=== PATIENT | male | born 1950 | race Caucasian/White ===

== ENCOUNTER → 2019-03-22 10:43 | Outpatient (CLI) | payer MEDICARE, SELFPAY ==
[2019-03-22 10:10] VITALS: BMI 29.5
[2019-03-22 12:28] LABS: ALB/GLOB Ratio 1.1 RATIO (0.9-2.4); AST(SGOT) 27 U/L (15-37); Alanine Aminotransfer ALT/SGPT 37 U/L (16-61); Albumin, Serum 4.2 g/dL (3.2-5.0); Alkaline Phosphatase 94 U/L (45-117); Anion Gap 7 (5-15); BUN 15 mg/dL (7-18); BUN/Creat Ratio 13.5 RATIO (10-20); Calcium,Total 9.3 mg/dL (8.5-10.1); Chloride 103 mmol/L (98-107); Cholesterol 259 mg/dL (200); Creatinine, Serum 1.11 mg/dL (0.70-1.30); EST Glomerular Filtration Rate 70 mL/min (>60); Est Glom Filt Rate - Afr Amer 84 mL/min (>60); Globulin 3.8 g/dL (2.2-4.2); Glucose 100 mg/dL (74-106); High Density Lipoprotein 43 mg/dL; Potassium 4.4 mmol/L (3.5-5.1); Sodium Level 137 mmol/L (136-145); Triglycerides 364 mg/dL; Very Low Density Lipoprotein 73 mg/dL (5-40)
== END ==
PROVIDERS: Family Provider Family Medicine; PCP Family Medicine; Visit Provider Family Medicine
DX: E78.5 Hyperlipidemia, unspecified (principal); N52.9 Male erectile dysfunction, unspecified; K76.0 Fatty (change of) liver, not elsewhere classified
CPT/HCPCS: 36415; 80053; 80061; 84403

== ENCOUNTER → 2019-04-21 10:17 | Outpatient (CLI) | payer MEDICARE, SELFPAY ==
[2019-03-22 10:10] VITALS: BMI 29.5
== END ==
PROVIDERS: Family Provider Family Medicine; PCP Family Medicine; Visit Provider Family Medicine
DX: N53.9 Unspecified male sexual dysfunction (principal)
CPT/HCPCS: 36415; 84403

== ENCOUNTER → 2019-09-06 09:51 | Outpatient (CLI) | payer MEDICARE, SELFPAY ==
[2019-09-06 09:41] VITALS: BMI 30.6
--- NOTE | 2019-09-06 09:51 | RAD_ITS ---
STUDY: X-RAY - LEFT KNEE REASON FOR EXAM: Male, 68 years old. LEFT KNEE PAIN, NO TRAUMA TECHNIQUE: 4 view(s) of the knee. COMPARISON: None. FINDINGS: Normal visualized distal femur. Normal visualized proximal tibia and fibula. Normal proximal tibiofibular articulation. Normal medial femorotibial compartment. Normal lateral femorotibial compartment. Normal patellofemoral articulation. The soft tissue structures are unremarkable. RAD/Knee 4 or More Views IMPRESSION: Normal x-ray examination of the knee. Electronically Signed: Charan Olivares, at 11:21 EDT , Service support ,
== END ==
PROVIDERS: PCP Family Medicine; Referring Provider Orthopaedic Surgery; Visit Provider Orthopaedic Surgery
DX: M25.562 Pain in left knee (principal)
CPT/HCPCS: 73564

== ENCOUNTER → 2019-09-08 16:06 | Outpatient (CLI) | payer MEDICARE, SELFPAY ==
[2019-09-06 10:06] VITALS: BMI 29.5
--- NOTE | 2019-09-08 16:07 | MRI_ITS ---
STUDY: MRI LEFT KNEE REASON FOR EXAM: Male, 69 years old. MEDIAL LEFT knee pain X 3 WEEKS NO KNOWN INJURY TECHNIQUE: Standardized fat and water weighted pulse sequences were obtained in all 3 orthogonal planes. COMPARISON: None. FINDINGS: Oblique tears are present in the body of the medial meniscus as well as the root insertion of the posterior horn of medial meniscus. Degenerative signal is also present in these regions. Normal anterior horn. There is diffuse, less than 50% thickness articular cartilage loss of the medial femorotibial compartment. Normal medial femoral condyle and tibial plateau. Normal medial collateral ligamentous complex (MCL). Normal distal semimembranosus, gracilis and semitendinosus tendons. Normal lateral meniscus. Normal hyaline cartilage of the lateral femorotibial compartment. Normal lateral femoral condyle and tibial plateau. Normal proximal tibiofibular articulation. Normal lateral collateral (fibular) ligament. Normal popliteus tendon. Normal biceps femoris tendon. Normal anterior cruciate ligament (ACL). Normal posterior cruciate ligament (PCL). Normal congruent patellofemoral articulation. Normal hyaline cartilage of the patellofemoral compartment. Normal medial and lateral patellar retinaculum. Normal quadriceps tendon. Normal patellar tendon. Normal Hoffa''s fat pad. There is a small volume joint effusion. A tiny Salinas''s cyst is present. Small synovial plica seen in the medial patellofemoral gutter. Mild subcutaneous edema is present anterior aspect of knee joint. The soft tissues are unremarkable. The otherwise visualized osseous structures are unremarkable. MRI/Lower Ext Joint Only (Routine) IMPRESSION: 1. Small oblique tear is in the body and posterior horn of medial meniscus 2. Small joint effusion 3. Small synovial plica seen in the medial patellofemoral gutter. Electronically Signed: Papa Guerrero MD at 23:23 EDT , Service support ,
--- NOTE | 2019-09-08 16:25 | RAD_ITS ---
STUDY: X-RAY - ORBITS REASON FOR EXAM: Male, 69 years old. Pre-MRI, looking for foreign body TECHNIQUE: 2 view(s) of the orbits were obtained. COMPARISON: None. FINDINGS: Normal bilateral orbits without a metallic orbital foreign body. Normal visualized facial bones. Normal paranasal sinuses. The soft tissue structures are unremarkable. RAD/Orbits for Foreign Body IMPRESSION: No demonstrated metallic orbital foreign body. The patient is cleared for an MRI examination. Electronically Signed: Ray Albarado MD at 16:37 EDT , Service support ,
== END ==
PROVIDERS: PCP Family Medicine; Referring Provider Orthopaedic Surgery; Visit Provider Orthopaedic Surgery
DX: S83.242A Other tear of medial meniscus, current injury, left knee, initial encounter (principal)
CPT/HCPCS: 70030; 73721

== ENCOUNTER 2020-12-31 06:38 | Day surgery (SDC) | payer MEDICARE, SELFPAY ==
[2020-12-09 09:59] VITALS: BMI 30.3
[2020-12-31] VITALS (8 sets, daily range): BP systolic 122–160; BP diastolic 65–88; PULSE 62–73; RESP 15–16; TEMP 36.2–36.6; O2SAT 98–100; BMI 30.1
--- NOTE | 2020-12-31 06:51 | EKG12_ITS ---
Test Reason : PRE OP Blood Pressure : / mmHG Vent. Rate : 075 BPM Atrial Rate : 075 BPM P-R Int : 142 ms QRS Dur : 092 ms QT Int : 370 ms P-R-T Axes : 031 -18 -43 degrees QTc Int : 413 ms Normal sinus rhythm Nonspecific ST and T wave abnormality Abnormal ECG No previous ECGs available Confirmed by STACY SOLIS, FARHAT ([id number]), social media editor DOMINIC MYERS ([id number]) on 01/03/2021 9:59:30 AM Referred By: Anupam Roy Confirmed By:CHELSEA KUMAR MD
[2020-12-31] MEDS: Lactated Ringers 1,000 ML 100 ML IV (07:30)
--- NOTE | 2020-12-31 07:40 | HP.PCM_ITS ---
History and Physical Date of Admission: 12/31/20 Date of Service: 12/09/20 MR#:[id number]:[id number]: MARIA ANTONIA ANDERSON [facility] #:[id number]:[id number] Provider:Dr. Anupam Roy DOAge/Sex: 70/M [facility] [place] Intake Vital Signs 12/09/20 09:59 Height 5 ft 5.5 in Weight: 185 lb BMI 30.3 Intake Visit Reasons: LEFT KNEE Is patient in pain?: Yes Allergies influenza virus vaccine tvs [id number](65 years up) [From Fluad [id number] (65 yr up)(PF)] Allergy (Severe, Verified 12/09/20 10:01) Unknown Tetanus Vaccines and Toxoid Allergy (Severe, Verified 12/09/20 10:01) Pain in joints vaccine adjuvant emulsion MF59C.1 [From Fluad 5318-3677 (65 yr up)(PF)] Allergy (Severe, Verified 12/09/20 10:01) Unknown atorvastatin Allergy (Intermediate, Verified 12/09/20 10:01) Pain in joints guaifenesin [From Mucinex] Allergy (Verified 12/09/20 10:01) racing heart, pass out Medications NK 12/09/20 [History Confirmed 12/09/20] [facility] Medical History (Updated 12/09/20 @ 10:36 by Montserrat George) Carpal tunnel syndrome H/O tinnitus Hearing problem Pneumonia Seasonal allergies Tumors Surgical History History of colonoscopy 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 Anupam Roy DO) Smoking Status: Former smoker how long ago did patient quit smokin alcohol intake: never substance use type: does not use what type of physical activity do you participate in: none HPI LEFT KNEE Details: Parts of this documentation were recorded by a scribe, this documentation accurately reflects the service provided and the decisions made by me, Dr. Anupam Roy DO 12/09/20 0749. MARIA ANTONIA ANDERSON is a 70 year old M here today for left knee pain. Patient notes that he has had increased left knee pain over the last month. He has painful popping and clicking. Patient denies any knee instability. He complains of medial knee pain. Patient has increased pain with ambulation and standing after prolonged sitting. Patient notes that he has minimal swelling. Patient had xrays and an MRI in the spring. Patient takes ibuprofen for pain. He has a knee brace which is somewhat helpful. ROS Musc Reports arthralgias, Reports joint swelling, Reports muscle weakness, Denies numbness and Denies tingling Skin/Breast Reports system reviewed and no additional complaints, except as documented Neuro Yes system reviewed and no additional complaints, except as documented, No numbness and No tingling Ortho Exam General General: Yes no acute distress Neurologic: Yes alert Psychologic: Yes reasonable and appropriate Right Knee Patella Translation: 1 Left Knee Skin/Wound: Yes CDI, No ecchymosis, No erythema and No swelling Homans Sign: No Knee ROM: No ROM-Passive Extension -10 to 0 (8) and No ROM-Passive Flexion 0-140 Examination: Yes med jt line tenderness and No TTP Pes Anserine Stability: NML: Valgus 30 (2mm medial gapping) Apprehension with Lateral Translation: No Patella Translation: 1 KNEE: valgus deformity, ttp medial femoral condyle. Supplemental Info 09/08/2019 MRI left knee: oblique tear posterior body and horn medial meniscus small joint effusion small synovial plica medial patellofemoral gutter Coding Level of Care Code Off vis,est,level 3 Diagnoses Acute medial meniscus tear of left knee S83.242A Osteoarthritis of left knee M17.12 Assessment and Plan Assessment and Plan (1) Acute medial meniscus tear of left knee: Status: Acute (2) Osteoarthritis of left knee: Status: Acute Plan - Dr. Anupam Roy, DO: Spoke with the patient about the anatomy of the knee and etiology of his pain. Spoke with him about a knee arthroscopy to help with his meniscus tear. He has a risk of continued pain due to osteoarthritis. If he continues to have pain following surgery, he would be a candidate for a steroid injection. Patient wanted to proceed with surgery. Reviewed the pre-operative plans with the patient. Risks and benefits of the procedure were fully explained, including but not limited to infection, neurovascular injury, continued pain, arthritis, stiffness, need for further surgery, re-injury, DVT, PE, general risks of anesthesia, and loss of limb or life. The patient understands all the risks and does wish to proceed with written consent. He should not take any aleve or ibu 7 days prior to surgery. Follow up for 2 week post op appointment or sooner if pain, swelling, numbness or associated symptoms, or concerns develop. All questions answered. Patient in agreement of plan. Plan Details Other Orders: Orders: Knee 4 or More Views Today M25.562 12/09/20 1152<Electronically signed by Anupam Roy DO>Date Anupam Roy DO Cosigner Signature:Date (if applicable) CC: Dr. Rohit Dukes, DO ~I have re-examined the patient. There are no clinical changes since date of exam
[2020-12-31] MEDS: Cefazolin 2 GM in 0.9% Normal Saline 100 ML IV (11:00)
[2020-12-31] MEDS: Epinephrine (1 mg/ml) 1 MG/ML VIAL (11:18)
[2020-12-31] MEDS: Lidocaine 1% /Epi 1:100 (20ml) 20 ML Vial (11:18)
[2020-12-31] MEDS: MethylPREDNISolone Acetate 40 MG/ML Vial IM (11:43)
[2020-12-31] MEDS: Bupivacaine Mpf 0.5% 30 ML VIAL (11:43)
--- NOTE | 2020-12-31 11:56 | OP.PCM_ITS ---
Report of Operation Description of Surgical Findings:: Preop diagnosis: Left knee medial meniscus tear medial plica Postoperative diagnosis: Left knee complex tear posterior horn body and anterior horn medial meniscus small radial tear body lateral meniscus medial plica band grade 3 cartilage wear medial femoral condyle Procedure: Left knee arthroscopic partial medial partial lateral meniscectomy excision of plica Anesthesia: General Estimated blood loss: 5 mL Tourniquet time: 27 minutes 300 mmHg Complications: none Indication for procedure: 70-year-old male patient who has had ongoing mechanical knee symptoms and has failed conservative treatment with MRI evidence of medial meniscus tear the patient did wish to proceed with an elective arthroscopic surgery to attempt to alleviate the symptoms. Risk benefits and alternatives of the procedure were reviewed including risk of bleeding infection nerve artery tissue damage need for further surgery continued pain and expected postoperative course. Procedure: The patient was met in the preoperative holding area. The operative extremity was identified by both patient and physician and family and marked. Patient was brought back to the operating room on a wheeled cart and transferred to the operating table in the supine position. Anesthesia was started. A well-padded tourniquet was placed on the operative extremity. A lower extremity leg gutierrez was secured to the operative extremity. The contralateral extremity was well-padded and the end of the bed was flexed to 90 degrees. The patient was prepped and draped in the usual sterile fashion. A timeout was called to ensure the proper patient, procedure, and extremity were being contemplated. 0.5% Marcaine with epinephrine was injected into the planned incisional areas under the skin only. An Esmarch was used to exsanguinate the extremity and the tourniquet was inflated. An 11 blade scalpel was used to make a stab incision in the anterior lateral portal. The arthroscope was inserted into the intercondylar notch and inflow and outflow tubes were attached. Arthroscopic visualization began. The medial compartment was entered. An 18-gauge spinal needle was used to establish the placement for anterior medial portal. An 11 blade scalpel was used to make a stab incision. Blunt probe was inserted followed by a meniscal probe. There was noted to be complex tearing of the medial meniscus with use of arthroscopic biting instruments shaver and ArthroCare wand partial medial meniscectomy was performed there was noted to be grade 3 chondral wear of the medial femoral condyle the ACL was found to be intact. The lateral compartment was entered there is noted to be a small radial tear in the junction of the anterior horn and body of the lateral meniscus shaver was used to perform a partial lateral meniscectomy there is softening of the cartilage of the lateral compartment and some fibrillation but no major defects The arthroscope was switched to the medial portal to complete the procedure. The medial and lateral gutters were inspected and were free of loose bodies. The patellofemoral joint was inspected had some softening and fibrillation of the patellofemoral joint there is no to be a medial plica which was excised. There was good patellar tracking. The knee was thoroughly i rrigated and drained. An intra-articular injection with 5 cc 0.5% Marcaine plain and 40 mg of Depo-Medrol was injected intra-articularly. The arthroscope was removed the portals were closed with 3-0 nylon arthroscopic stitches. Followed by Xeroform 4 x 4's ABDs web roll and an Kaz wrap. The tourniquet was let down and the drapes were removed. All counts were correct. The patient was brought back to the PACU in stable condition.
--- NOTE | 2020-12-31 13:01 | PCM.DC ---
Discharge Instructions Diet Discharge Diet: No restrictions Activity Discharge Activity: May Shower (in 48 hours) and - (No driving while takin narcotics) May shower in (days): 2 Ice area for (Minutes): 20 (Q 1-2 hours) Weight Bearing Status: Weight bearing as tolerated Keep extremity elevated above heart level: Operative Extremity Additional Activity Instructions:: Ice and elevate especially for the first 72 hours. Work on range of motion regularly to prevent stiffness Dressing / Incision Call your doctor if your incision/area has: Increased Pain/ Swelling Call your doctor if you observe: Fever of 101 or Higher, Shortness of breath and Chest pain Change Dressing in: 2 days Remove Dressing in: 2 days Cleanse incision/area with: Soap & Water (once dresing removed in 48 hours) and - (Do not submerse or soak the extremity for 72 hours) Follow Up Care Please Follow Up With: Bandar Gold, PA When: 2 weeks post-op Test Results: Test results from this visit will be discussed in further detail at your follow-up appointment, if applicable. Discharge Plan Admission Attending Provider: Anupam Roy Primary Care Provider: Rohit Dukes Discharge Orders/Prescriptions Prescriptions: New oxycodone 5 mg tablet See Rx Instructions .ROUTE .COMPLEX PRN (Reason: pain) 4 Days Qty: 40 RF: 0 Continued multivitamin Tablet 1 tab PO DAILY RF: 0 Lactobacillus acidophilus Tablet 2,000 mmu cells PO DAILY RF: 0 Referrals / Follow Up: Rohit Dukes DO [Primary Care Provider] - Disposition Disposition (needs filled in before D/C Order can be placed): Home, Self Care
[2020-12-31] MEDS: oxyCODONE 5 MG Tablet PO (13:31)
== END 2020-12-31 15:12 | disposition home or self-care (01) ==
LOC: SDC 06:38 → AC 06:39
PROVIDERS: PCP Family Medicine; Referring Provider Orthopaedic Surgery; Visit Provider Orthopaedic Surgery
PROC: (CPT 29870; principal; 2020-12-31 10:30)
DX: S83.232A Complex tear of medial meniscus, current injury, left knee, initial encounter (principal); S83.272A Complex tear of lateral meniscus, current injury, left knee, initial encounter; X58.XXXA Exposure to other specified factors, initial encounter; Y93.9 Activity, unspecified; Y92.9 Unspecified place or not applicable; Y99.9 Unspecified external cause status; M67.52 Plica syndrome, left knee; M17.12 Unilateral primary osteoarthritis, left knee; Z87.891 Personal history of nicotine dependence; Z20.822 Contact with and (suspected) exposure to COVID-19
CPT/HCPCS: 29880; 87426; 93005; C9803; J7120

== ENCOUNTER 2021-01-21 12:51 | Emergency (ER) | payer MEDICARE, SELFPAY ==
[2021-01-21 12:51] VITALS: BP 154/91; PULSE 85; RESP 16; TEMP 36.3; O2SAT 97; BMI 29.9
--- NOTE | 2021-01-21 14:14 | VDLE_ITS ---
Reason For Study: swelling Procedure LEFT This is a venous duplex using B-mode, color GSV is normal. flow and spectral Doppler. CFV is compressible, spontaneous, phasic, Exam performed portable in ED. competent, and demonstrates normal The exam was abbreviated due to the COVID 19 augmentation. protocol. FV is compressible, spontaneous, phasic, The exam was diagnostic. competent and demonstrates normal A preliminary report was called and/or faxed augmentation. to Dr. Wu. POP V is compressible, spontaneous, phasic, competent and demonstrates normal augmentation. T/P Trunk is compressible. PTV is compressible. LT PerV is compressible. VL/Venous Duplex US, Unilateral Interpretation Summary There is no evidence of left lower extremity deep vein thrombosis. Left great s aphenous vein appears patent and compressible segmentally. Abbreviated COVID-19 protocol utilized Ordering Physician: Elder Wu Performed By: Jose C Lyle RVT
--- NOTE | 2021-01-21 14:16 | ED.VIS.LOWEX ---
HPI History of Present Illness Chief Complaint: Lower Extremity Injury Narrative Narrative: Patient presenting for evaluation secondary to leg swelling. 3 weeks ago the patient had arthroscopic left knee surgery. Patient states that since then he has been having bruising in his lower leg and ankle and pain and swelling of his calf. Denies any numbness or weakness. Denies any fevers. Denies any chest pain or shortness of breath. Patient denies any underlying history of DVT or PE he is not anticoagulated denies that there was any sort of new injuries associated with this. Review of systems otherwise negative. PFSH PFS Medical History Arthritis Back pain Carpal tunnel syndrome Former smoker Gastric reflux H/O tinnitus Hearing problem History of diverticulitis History of rheumatic fever History of stress test Pneumonia Seasonal allergies Tumors Wears glasses Wears partial dentures Home Medications Lactobacillus acidophilus 2,000 mmu cells PO DAILY 12/24/20 [History Last Taken Unknown] multivitamin 1 tab PO DAILY 12/24/20 [History Last Taken Unknown] oxycodone See Rx Instructions .ROUTE .COMPLEX PRN 4 Days #40 tab 12/31/20 [Rx Last Taken Unknown] Allergy/AdvReac Type Severity Reaction Status Date / Time influenza virus vaccine tvs Allergy Severe Unknown Verified 01/21/21 12:54 [id number](65 years up) [From Fluad 9472-0818 (65 yr up)(PF)] Tetanus Vaccines and Toxoid Allergy Severe Pain in Verified 01/21/21 12:54 joints vaccine adjuvant emulsion Allergy Severe Unknown Verified 01/21/21 12:54 MF59C.1 [From Fluad 9336-7570 (65 yr up)(PF)] atorvastatin Allergy Intermediate Pain in Verified 01/21/21 12:54 joints guaifenesin [From Mucinex] Allergy racing Verified 01/21/21 12:54 heart, pass out Family History Brother Alcoholism Mother Arthritis Thyroid disorder Father Arthritis Myocardial infarction, Onset Age: 68 Hypertension Sister Thyroid disorder Surgical History History of colonoscopy 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 Social History Smoking Status: Former smoker how long ago did patient quit smokin alcohol intake: never substance use type: does not use what type of physical activity do you participate in: none ROS ROS ED Constitutional Constitutional ED: Denies chills or fever(s) ENT ENT ED: Denies rhinorrhea Cardiovascular Cardiovascular: Denies chest pain Respiratory/Chest Respiratory/Chest: Denies cough or dyspnea Gastrointestinal Gastrointestinal: Denies abdominal pain, diarrhea, nausea or vomiting Genitourinary Genitourinary ED: Denies dysuria or hematuria Musculoskeletal Musculoskeletal: Reports other Details: Left leg pain Integumentary Denies rash Neurologic Neurologic: Denies paresthesias or weakness Psychiatric Psychiatric: Denies depression Endocrine Endocrinology: Denies fatigue Allergic/Immunologic Allergic/Immunologic ED: Denies urticaria EXAM Physical Exam Const Vital Signs: 01/21/21 12:51 01/21/21 14:18 Temperature 97.4 F L Temperature Source Temporal Pulse Rate 85 14 L Respiratory Rate 16 Blood Pressure 154/91 H Blood Pressure Mean 112 Pulse Ox 97 Oxygen Delivery Method Room Air Positive well nourished and well developed General Appearance ED: well developed and NAD HEENT Negative for trauma or tenderness Eyes EOMs intact bilaterally Neck no lymphadenopathy, supple and no JVD Chest Wall inspection of chest normal Resp normal respiratory effort and clear to auscultation bilaterally Cardio regular rate, regular rhythm, no murmurs and peripheral pulses 2+ throughout GI normal to inspection, nondistended, normoactive bowel sounds Back/Spine normal to inspection Extremity Extremity Narrative: Examination of the patient's left leg shows well-healing arthroscopic surgical in his decisions. Patient has some bruising over the calf and the ankle with some tenderness palpation throughout that area. Compartment is soft normal distal pulses and sensation. No palpable cord noted. General Extremety ED: Negative for tenderness Neuro oriented x3 and no sensory deficits noted Sensorium / Orientation: alert Motor Exam: strength 5/5 throughout Psych mental status grossly normal Skin no rashes or lesions noted MDM MDM MDM Narrative Medical decision making narrative: Patient presented secondary to some pain and swelling in his legs status post an operation on his knee. Duplex ultrasound was obtained was found to be negative. No signs of DVT. Patient has normal pulses, no signs of trauma, no signs of infection. His changes are likely postoperative even though this is 3 weeks status post his operation. Patient was given reassurance. He was instructed to follow-up with his orthopedist. Patient was discharged in stable condition. Discharge Plan Triage Chief Complaint: Lower Extremity Injury ED Provider: Elder Wu Dx/Rx/DC Orders Clinical Impression: Leg pain, left Instructions: ED Post Op Wound Check, Pain Prescriptions: No Action multivitamin Tablet 1 tab PO DAILY RF: 0 Lactobacillus acidophilus Tablet 2,000 mmu cells PO DAILY RF: 0 oxycodone 5 mg tablet See Rx Instructions .ROUTE .COMPLEX PRN (Reason: pain) 4 Days Qty: 40 RF: 0 Primary Care Provider: Rohit Dukes Referrals: Rohit Dukes DO [Primary Care Provider] - Anupam Roy DO [STAFF PHYSICIAN] - (As scheduled) Disposition Disposition: Home, Self Care
[2021-01-21 14:18] VITALS: PULSE 14
[2021-01-21 15:32] VITALS: BP 134/66; PULSE 71; RESP 15; O2SAT 98
== END 2021-01-21 15:33 | disposition home or self-care (01) ==
PROVIDERS: Emergency Provider Emergency Medicine; PCP Family Medicine
DX: M79.605 Pain in left leg (principal); R60.0 Localized edema; M19.90 Unspecified osteoarthritis, unspecified site; Z87.891 Personal history of nicotine dependence
CPT/HCPCS: 93971; 99282

== ENCOUNTER → 2021-05-01 | Outpatient (CLI) | payer MEDICARE, SELFPAY | END | disposition home or self-care (01) | LOC: LABSPEC 11:04 | PROVIDERS: PCP Family Medicine; Referring Provider Family Medicine; Visit Provider Family Medicine | DX: J39.9 Disease of upper respiratory tract, unspecified (principal) | CPT/HCPCS: 87635; U0005; U0003 ==

== ENCOUNTER → 2021-05-08 13:39 | Outpatient (CLI) | payer MEDICARE, SELFPAY ==
--- NOTE | 2021-05-08 13:41 | RAD_ITS ---
STUDY: XR Chest 2 Views 05/08/2021 1:50 PM REASON FOR EXAM: Male, 70 years old. CHEST PAIN cough, sob, wheeze COMPARISON: None TECHNIQUE: XR Chest 2 Views FINDINGS: There is no demonstrated pleural abnormality. Normal heart size. Normal mediastinum. Normal max. Prominent appearing increased interstitial lung markings. Normal visualized pulmonary arteries. There is atherosclerotic calcification of the aortic arch with tortuosity. There are diffuse degenerative changes of the visualized thoracic spine. There is degenerative osteoarthritis of the bilateral shoulders. There is no demonstrated abnormality of the visualized soft tissue structures of the upper abdomen. RAD/Chest PA and Lateral IMPRESSION: There are no acute findings. Electronically Signed: Catrachito Ibarra MD at 17:11 EST , Service support ,
[2021-05-08 13:43] LABS: Bacteria 0 SEEN /hpf (None Seen); Mucous, Urine 0 SEEN /hpf (<or=2+); Red Blood Cells-Urine 0 SEEN /hpf (0-5); Squamous Epithelial Cells - UA 0 SEEN /hpf (0-5); White Blood Cells 0 SEEN /hpf (0-5)
[2021-05-08 15:21] LABS: Color, Urine Yellow (Yellow); Glucose, Dipstick Normal (Normal); Ketone-Dipstick Negative (Negative); Leukocyte Esterase-Dipstick Negative /ul (Negative); Nitrite-Dipstick Negative (Negative); Occult Blood-Urine Negative /ul (Negative); Protein-Dipstick 15 mg/dl (Negative); Specific Gravity, Urine 1.015 (1.002-1.030); Urine Bilirubin Dipstick Negative (Negative); Urine Clarity Clear (Clear); Urine Urobilinogen Normal (Normal)
== END ==
PROVIDERS: PCP Physician Assistant; Referring Provider Family Medicine; Visit Provider Family Medicine
DX: R05.9 Cough, unspecified (principal); R06.02 Shortness of breath; R06.2 Wheezing; R50.9 Fever, unspecified; R41.82 Altered mental status, unspecified
CPT/HCPCS: 71046; 81001; 87635; U0003; U0005

== ENCOUNTER → 2022-04-07 | Outpatient (CLI) | payer MEDICARE, SELFPAY | END | disposition home or self-care (01) | LOC: LABSPEC 14:05 | PROVIDERS: PCP Physician Assistant; Referring Provider Physician Assistant; Visit Provider Physician Assistant | DX: R05.9 Cough, unspecified (principal) | CPT/HCPCS: 87635; U0003; U0005 ==

== ENCOUNTER → 2022-06-11 | Outpatient (CLI) | payer MEDICARE, SELFPAY ==
[2022-06-11 15:26] LABS: ALB/GLOB Ratio 1.1 RATIO (0.9-2.4); AST(SGOT) 28 U/L (15-37); Alanine Aminotransfer ALT/SGPT 45 U/L (16-61); Albumin, Serum 4.1 g/dL (3.2-5.0); Alkaline Phosphatase 79 U/L (45-117); Anion Gap 6 (5-15); BUN 15 mg/dL (7-18); BUN/Creat Ratio 13.9 RATIO (10-20); Calcium,Total 9.4 mg/dL (8.5-10.1); Chloride 101 mmol/L (98-107); Cholesterol 240 mg/dL (200); Creatinine, Serum 1.08 mg/dL (0.70-1.30); EST Glomerular Filtration Rate 71 mL/min (>60); Est Glom Filt Rate - Afr Amer 86 mL/min (>60); Globulin 3.8 g/dL (2.2-4.2); Glucose 119 mg/dL (74-106); High Density Lipoprotein 49 mg/dL; PSA,Total- Diagnostic 0.62 ng/mL (0.0-4.0); Potassium 4.5 mmol/L (3.5-5.1); Protein, Total 7.9 g/dL (6.4-8.2); Sodium Level 136 mmol/L (136-145); Triglycerides 273 mg/dL; Very Low Density Lipoprotein 55 mg/dL (5-40)
== END | disposition home or self-care (01) ==
LOC: BIMLAB 13:27
PROVIDERS: PCP Family Medicine; Referring Provider Family Medicine; Visit Provider Family Medicine
DX: I10 Essential (primary) hypertension (principal); R39.11 Hesitancy of micturition
CPT/HCPCS: 36415; 80053; 80061; 84153

== ENCOUNTER → 2023-02-09 | Outpatient (CLI) | payer OTHER, SELFPAY ==
--- NOTE | 2023-02-09 14:26 | ECHOD_ITS ---
Reason For Study: ISCH HEART DISEASE Procedure This was a 2D Doppler, Color Flow transthoracic echocardiogram. Exam performed in department. Left Ventricle Normal LV size. Left ventricular systolic function is normal. The estimated ejection fraction is 60 %. Stage 1 diastolic dysfunction. No regional wall motion abnormalities noted. Right Ventricle Normal RV size. Normal systolic function. Atria Normal left atrium. Normal right atrium. Mitral Valve Normal mitral valve. Tricuspid Valve Normal tricuspid valve. Aortic Valve Trisinus/trileaflet aortic valve. Pulmonic Valve Normal pulmonic valve. Great Vessels Normal aortic root. The pulmonary artery is normal size. Normal inferior vena cava. Pericardium/Pleural No pericardial effusion. MMode/2D Measurements & Calculations RVDd: 2.2 cm Ao root diam: 3.7 cm LAV(MOD-bp): 35.3 ml LAV(MOD-bp) Indexed: 18.8 ml/m2 LAV(MOD-sp2): 32.5 ml LAV(MOD-sp4): 36.0 ml SV(MOD-sp4): 27.6 ml SV(sp4-el): 30.6 ml LVAd ap4: 20.0 cm2 LVLd ap4: 6.8 cm EDV(MOD-sp4): 47.6 ml EDV(sp4-el): 49.7 ml LVAs ap4: 11.1 cm2 LVLs ap4: 5.5 cm ESV(MOD-sp4): 20.0 ml ESV(sp4-el): 19.1 ml EF(MOD-sp4): 58.0 % EF(sp4-el): 61.6 % LA A4 area: 14.9 cm2 LA dimension(2D): 4.2 cm RA A4 area: 10.2 cm2 TAPSE: 2.1 cm Time Measurements MV dec time: 0.34 sec Doppler Measurements & Calculations MV E max yonas: 49.9 cm/sec Lat Peak E' Yonas: 8.2 cm/sec Med Peak E' Yonas: 6.4 cm/sec MV A max yonas: 65.9 cm/sec E/E' lat: 6.1 E/E' med: 7.8 MV E/A: 0.76 MV V2 max: 74.8 cm/sec Ao V2 max: 109.6 cm/sec MV max P.2 mmHg MV dec slope: 150.9 cm/sec2 Ao max P.8 mmHg MV V2 mean: 45.8 cm/sec Ao V2 mean: 80.7 cm/sec MV mean P.92 mmHg Ao mean P.9 mmHg MV V2 VTI: 21.3 cm Ao V2 VTI: 26.0 cm AV (velocity ratio): 0.71 LV V1 max: 99.0 cm/sec PA V2 max: 99.8 cm/sec LV V1 max P.9 mmHg PA V2 mean: 70.0 cm/sec LV V1 mean P.2 mmHg LV V1 mean: 70.5 cm/sec LV V1 VTI: 18.5 cm ECHO/Echo Complete Interpretation Summary Normal LV size. Left ventricular systolic function is normal. The estimated ejection fraction is 60 %. Stage 1 diastolic dysfunction. Ordering Physician: Landen Cowart Referring Physician: Landen Cowart Performed By: Lisa Spivey RCS
== END | disposition home or self-care (01) ==
LOC: CVS 14:24
PROVIDERS: PCP Family Medicine; Referring Provider Chiropractor; Visit Provider Chiropractor
DX: I25.9 Chronic ischemic heart disease, unspecified (principal)
CPT/HCPCS: 93306

== ENCOUNTER → 2023-06-15 | Outpatient (CLI) | payer MEDICARE, SELFPAY ==
[2023-06-15 12:15] LABS: Absolute Lymphocyte Count 1.86 X10^3/uL (0.83-4.51); Absolute Neutrophil Count 3.9 X10^3/uL (2.0-7.7); Basophil# 0.03 X10^3/uL; Basophil% 0.5 % (0-1); Eosinophil# 0.12 X10^3/uL; Eosinophils% 1.9 % (0-5); Hematocrit 44.5 % (40-54); Hemoglobin 14.9 g/dL (13.0-16.5); Lymphocyte # 1.86 X10^3/ul (0.83-4.51); Lymphocyte % 29.4 % (19-41); Mean Corp Hgb Conc 33.5 g/dL (32-36); Mean Corpuscular Hgb 29.6 pg (27.0-32.0); Mean Corpuscular Volume 88.5 fL (80-94); Mean Platelet Vol. 10.7 fl (6.2-12.0); Monocyte# 0.43 X10^3/uL; Monocyte% 6.8 % (0-10); NRBC Flagged by Analyzer 0 % (0-5); Neutrophil # 3.85 X10^3/uL (2.7-7.7); Neutrophil % 60.9 % (47-70); Platelet Count 200 K/mm3 (150-450); RBC Distribution Width CV 12.9 % (11.6-14.6); RBC Distribution Width SD 41.8 fl (35.1-43.9); Red Blood Count 5.03 M/mm3 (4.6-6.2); White Blood Count 6.3 K/mm3 (4.4-11.0)
[2023-06-15 13:41] LABS: ALB/GLOB Ratio 1.2 RATIO (0.9-2.4); AST(SGOT) 25 U/L (15-37); Alanine Aminotransfer ALT/SGPT 39 U/L (16-61); Albumin, Serum 4.2 g/dL (3.2-5.0); Alkaline Phosphatase 90 U/L (45-117); Anion Gap 5 (5-15); BUN 17 mg/dL (7-18); BUN/Creat Ratio 18.3 RATIO (10-20); Calcium,Total 9.7 mg/dL (8.5-10.1); Chloride 103 mmol/L (98-107); Creatinine, Serum 0.93 mg/dL (0.70-1.30); EST Glomerular Filtration Rate 84 mL/min (>60); Est Glom Filt Rate - Afr Amer 102 mL/min (>60); Globulin 3.6 g/dL (2.2-4.2); Glucose 111 mg/dL (74-106); Potassium 4.3 mmol/L (3.5-5.1); Protein, Total 7.8 g/dL (6.4-8.2); Sodium Level 132 mmol/L (136-145)
--- OUTSIDE RECORDS SUMMARY | 2023-06-15 14:23 | XMS RPT_ITS | CCD ---
Author Name Unknown Address [address] [place] [address] [address] [place] [id number] Organization [facility] Care Team Providers Care Pe Manager Name Role Phone MELANIE AGUIRRE Attending MELANIE Gabriel Primary Care Unavailable MELANIE AGUIRRE Admitting Unavailable ALEKSANDRA YU Referring Unavailable Problems Problem Classification Problem Date Documented Da te Episodic/Chronic Coronary atherosclerosis and other heart disease (1 source) Chronic ischemic heart disease, unspecified; Translations: [Chronic ischemic heart disease, unspecified] Onset: 07-03-2022 Chronic Results Test Name Value Interpretation Reference Range Facil ity Encounters Encounter Date Encounter Type Care Provider Facility Start: 07-03-2022 End: 07-03-2022 ambulatory ALEKSANDRA RODRIGUEZRENAKUA Facility:[id number] Start: 03-14-2020 End: 03-14-2020 Patient encounter procedure MELANIE AGUIRRE [facility] Payers Date Payer Category Payer Unknown [id number] 1950 Unknown [id number] Medicare [id number] Summary Purpose Family History No Family History Records FoundNo Family History Records FoundNo Family History Records Found Advance Directives No Advanced Directives Records FoundNo Advanced Directives Records FoundNo Advanced Directives Records Found Additional Source Comments (unrecognized sect ion and content) No Status Records FoundNo Status Records FoundNo Status Records Found INFORMATION SOURCE (unrecogn ized section and content) DATE CREATED AUTHOR AUTHOR'S ORGANIZ ATION 03/19/2020 [facility] DATE CREATED AUTHOR AUTHOR'S ORGANIZ ATION 07/05/2022 [facility] nter FOR RECORDS PERTAINING TO PATIENTS WHO ARE OR HAVE BEEN ENROLLED IN A CHEMICAL DEPENDENCY/SUBSTANCEABUSE PROGRAM, SOME INFORMATION MAY BE OMITTED. This clinical summary was aggregated from multiple sources. Caution should be exercised in using it in the provision of clinical care. This summary normalizes information from multiple sources, and as a consequence, information in this document may materially change the coding, format and clinical context of patient data. In addition, data may be omitted in some cases. CLINICAL DECISIONS SHOULD BE BASED ON THE PRIMARY CLINICAL RECORDS. [facility] provides no warranty or guarantee of the accuracy or completeness of information in this document.
== END | disposition home or self-care (01) ==
LOC: BIMLAB 11:21
PROVIDERS: PCP Family Medicine; Referring Provider Family Medicine; Visit Provider Family Medicine
DX: I10 Essential (primary) hypertension (principal)
CPT/HCPCS: 36415; 80053; 85025

== ENCOUNTER → 2024-10-10 | Outpatient (CLI) | payer MEDICARE, SELFPAY ==
--- NOTE | 2024-10-10 11:46 | RAD_ITS ---
PROCEDURE: KNEE 4 OR MORE VIEWS 10/10/2024 REASON FOR EXAM: PAIN TECHNIQUE: 4 view(s) of the left knee COMPARISON: 12/09/2020. FINDINGS: No evidence of acute fracture or dislocation. The joint spaces are maintained. Atherosclerosis is present. No knee joint effusion. RAD/Knee 4 or More Views IMPRESSION: No acute osseous abnormalities. Reading Location: [place] [address]
== END | disposition home or self-care (01) ==
LOC: RAD 11:45
PROVIDERS: PCP Family Medicine; Referring Provider Physician Assistant; Visit Provider Physician Assistant
DX: M25.561 Pain in right knee (principal)
CPT/HCPCS: 73564